=== PATIENT | female | born 1980 | race Caucasian/White ===

== ENCOUNTER 2016-11-29 14:24 | Emergency (ER) | payer OTHER, SELFPAY ==
[~2016-11-29] VITALS: Ht 160 cm; Wt 91.3 kg
[2016-11-29 14:26] VITALS: BP 131/85
[2016-11-29] MEDS ORDERED: IBUPROFEN 200 MG TABLET ONE (14:50)
[2016-11-29] MEDS ORDERED: HYDROcodone/APAP 5/325 TABLET ONE (14:50)
[2016-11-29] MEDS ORDERED: HYDROcodone/APAP 5/325 TABLET PO PRN (15:00)
[2016-11-29] MEDS ORDERED: IBUPROFEN 200 MG TABLET PO ONE (15:00)
== END 2016-11-29 15:51 | disposition home or self-care (01) ==
LOC: ED 15:13
DX: S40.012A Contusion of left shoulder, initial encounter (principal); S40.022A Contusion of left upper arm, initial encounter; S70.02XA Contusion of left hip, initial encounter; S90.32XA Contusion of left foot, initial encounter; W22.8XXA Striking against or struck by other objects, initial encounter; Y93.89 Activity, other specified; Y92.89 Other specified places as the place of occurrence of the external cause; Y99.8 Other external cause status
CPT/HCPCS: 99284